=== PATIENT | female | born 1995 | race Caucasian/White ===

== ENCOUNTER 2018-09-17 08:12 | Emergency (ER) | payer OTHER ==
--- NOTE | 2018-09-17 08:40 | EDM.PDOC ---
ED HPI GENERAL MEDICAL PROBLEM - General Chief Complaint: Abdominal Pain Stated Complaint: LEFT SIDE PAIN Time Seen by Provider: 09/17/18 08:15 Source of Information: Reports: Patient History Limitations: Reports: No Limitations - History of Present Illness INITIAL COMMENTS - FREE TEXT/NARRATIVE: 23 y.o.w.f came to the ED because of left flank and left lower abd. pain off/on for 3 days. No Trauma. Denies . No Dysuria, no N/V/D, last BM yesterday, soft, stool, no blood in stool seen. no CP or any other acute med issues. BP 127/63 RR 18 Pulse 83 Temp 36.8 Onset Date: 09/15/18 Onset Time: 09:00 Duration: Day(s):, Getting Worse, Intermittent Location: Reports: Abdomen (left flank) Quality: Reports: Burning, Dull Severity: Moderate Improves with: Reports: None Worsens with: Reports: None Context: Reports: Other Associated Symptoms: Reports: No Other Symptoms LLQ ABDO PAIN Pain Score (Numeric/FACES): 7 - Related Data Allergies Allergy/AdvReac Type Severity Reaction Status Date / Time No Known Allergies Allergy Verified 09/17/18 08:23 Home Meds: Home Meds Ciprofloxacin HCl [Cipro] 500 mg PO BID #20 tablet 09/17/18 [Rx] Phenazopyridine [Pyridium] 100 mg PO TID #9 tablet 09/17/18 [Rx] Social & Family History - Tobacco Use Smoking Status *Q: Never Smoker - Caffeine Use Caffeine Use: Reports: Energy Drinks, Soda, Tea - Recreational Drug Use Recreational Drug Use: No ED ROS GENERAL - Review of Systems Review Of Systems: See Below Constitutional: Reports: No Symptoms HEENT: Reports: No Symptoms Respiratory: Reports: No Symptoms Cardiovascular: Reports: No Symptoms Endocrine: Reports: No Symptoms GI/Abdominal: Reports: Abdominal Pain (left flank) : Reports: No Symptoms Musculoskeletal: Reports: No Symptoms Skin: Reports: No Symptoms Neurological: Reports: No Symptoms Psychiatric: Reports: No Symptoms Hematologic/Lymphatic: Reports: No Symptoms Immunologic: Reports: No Symptoms ED EXAM, GI/ABD - Physical Exam Exam: See Below Exam Limited By: No Limitations General Appearance: Alert, WD/WN, Mild Distress, Obese Eyes: Bilateral: Normal Appearance Ears: Normal External Exam, Normal Canal Nose: Normal Inspection Throat/Mouth: Normal Inspection, Normal Lips, Normal Voice, No Airway Compromise Head: Atraumatic, Normocephalic Neck: Normal Inspection, Supple, Non-Tender Respiratory/Chest: No Respiratory Distress, Lungs Clear, Normal Breath Sounds, Chest Non-Tender Cardiovascular: Normal Peripheral Pulses, Regular Rate, Rhythm, No Edema GI/Abdominal Exam: Normal Bowel Sounds, No Organomegaly, No Distention, No Abnormal Bruit, Pelvis Stable, Tender (left flank) (Female) Exam: Deferred Rectal (Female) Exam: Deferred Back Exam: Normal Inspection, Full Range of Motion, CVA Tenderness (L) Extremities: Normal Inspection, Normal Range of Motion, Non-Tender, No Pedal Edema, Normal Capillary Refill Neurological: Alert, Oriented, CN II-XII Intact, Normal Cognition, Normal Gait Psychiatric: Normal Affect, Normal Mood Skin Exam: Warm, Dry, Intact, Normal Color, No Rash Lymphatic: No Adenopathy Course - Vital Signs Text/Narrative:: 23 y.o.w.f came to the ED because of left flank and left lower abd. pain off/on for 3 days. No Trauma. Denies . No Dysuria, no N/V/D, last BM yesterday, soft, stool, no blood in stool seen. no CP or any other acute med issues. BP 127/63 RR 18 Pulse 83 Temp 36.8 PE: WNWD W F with left flank pain Imaging: CT Abd/pelvis: NAD Labs: CBC, BMP nl UA pos for UTI without hematuria Impression: UTI, Hepatic cyst Tx: Toradol, Pyridium and Cipro Reexam: Improved Plan: D/C with instructions Last Recorded V/S: Last Vital Signs Temp 36.9 C 09/17/18 08:15 Pulse 86 09/17/18 08:15 Resp 18 09/17/18 08:15 BP 127/63 09/17/18 08:15 Pulse Ox 99 09/17/18 08:15 - Orders/Labs/Meds Orders: Active Orders 24 hr Category Date Time Status Abdomen Pelvis wo Cont [CT] Stat Exams 09/17/18 09:24 Taken CULTURE URINE [RM] Stat Lab 09/17/18 08:44 Received Labs: Laboratory Tests 09/17/18 09/17/18 09/17/18 Range/Units 08:44 08:44 08:45 WBC 9.9 (4.5-12.0) X10-3/uL RBC 5.39 H (3.23-5.20) x10(6)uL Hgb 13.1 (11.5-15.5) g/dL Hct 39.9 (30.0-51.3) % MCV 74.1 L (80-96) fL MCH 24.2 L (27.7-33.6) pg MCHC 32.7 (32.2-35.4) g/dL RDW 14.9 (11.5-15.5) % Plt Count 269 (125-369) X10(3)uL MPV 8.9 (7.4-10.4) fL Neut % (Auto) 63.7 (46-82) % Lymph % (Auto) 27.3 (13-37) % Teller % (Auto) 5.7 (4-12) % Eos % (Auto) 3 (1.0-5.0) % Baso % (Auto) 1 (0-2) % Neut # (Auto) 6.2 (1.6-8.3) # Lymph # (Auto) 2.7 (0.6-5.0) # Teller # (Auto) 0.6 (0.0-1.3) # Eos # (Auto) 0.3 (0.0-0.8) # Baso # (Auto) 0.1 (0.0-0.2) # Sodium (135-145) mmol/L Potassium (3.5-5.3) mmol/L Chloride (100-110) mmol/L Carbon Dioxide (21-32) mmol/L BUN (7-18) mg/dL Creatinine (0.55-1.02) mg/dL Est Cr Clr Drug Dosing mL/min Estimated GFR (MDRD) (>60) BUN/Creatinine Ratio (9-20) Glucose (80-116) mg/dL Calcium (8.6-10.2) mg/dL Amylase (25-115) U/L Urine Color Yellow (YELLOW) Urine Appearance Slightly cloudy (CLEAR) Urine pH 5.0 (5.0-6.5) Ur Specific Dorado 1.025 (1.010-1.025) Urine Protein Negative (NEGATIVE) mg/dL Urine Glucose (UA) Normal (NORMAL) mg/dL Urine Ketones Negative (NEGATIVE) mg/dL Urine Occult Blood Negative (NEGATIVE) Urine Nitrite Negative (NEGATIVE) Urine Bilirubin Negative (NEGATIVE) Urine Urobilinogen Normal (NEGATIVE) mg/dL Ur Leukocyte Esterase Moderate H (NEGATIVE) Urine WBC 20-30 H (0-5) Ur Squamous Epith Cells Few H (NS,R,O) Urine Bacteria Moderate H (NS) Urine HCG, Qual Negative (NEGATIVE) 09/17/18 Range/Units 08:45 WBC (4.5-12.0) X10-3/uL RBC (3.23-5.20) x10(6)uL Hgb (11.5-15.5) g/dL Hct (30.0-51.3) % MCV (80-96) fL MCH (27.7-33.6) pg MCHC (32.2-35.4) g/dL RDW (11.5-15.5) % Plt Count (125-369) X10(3)uL MPV (7.4-10.4) fL Neut % (Auto) (46-82) % Lymph % (Auto) (13-37) % Teller % (Auto) (4-12) % Eos % (Auto) (1.0-5.0) % Baso % (Auto) (0-2) % Neut # (Auto) (1.6-8.3) # Lymph # (Auto) (0.6-5.0) # Teller # (Auto) (0.0-1.3) # Eos # (Auto) (0.0-0.8) # Baso # (Auto) (0.0-0.2) # Sodium 142 (135-145) mmol/L Potassium 3.7 (3.5-5.3) mmol/L Chloride 106 (100-110) mmol/L Carbon Dioxide 25 (21-32) mmol/L BUN 12 (7-18) mg/dL Creatinine 0.8 (0.55-1.02) mg/dL Est Cr Clr Drug Dosing 140.49 mL/min Estimated GFR (MDRD) > 60 (>60) BUN/Creatinine Ratio 15.0 (9-20) Glucose 98 (80-116) mg/dL Calcium 8.9 (8.6-10.2) mg/dL Amylase 29 (25-115) U/L Urine Color (YELLOW) Urine Appearance (CLEAR) Urine pH (5.0-6.5) Ur Specific Dorado (1.010-1.025) Urine Protein (NEGATIVE) mg/dL Urine Glucose (UA) (NORMAL) mg/dL Urine Ketones (NEGATIVE) mg/dL Urine Occult Blood (NEGATIVE) Urine Nitrite (NEGATIVE) Urine Bilirubin (NEGATIVE) Urine Urobilinogen (NEGATIVE) mg/dL Ur Leukocyte Esterase (NEGATIVE) Urine WBC (0-5) Ur Squamous Epith Cells (NS,R,O) Urine Bacteria (NS) Urine HCG, Qual (NEGATIVE) Meds: Medications Discontinued Medications Generic Name Dose Route Start Last Admin Trade Name Freq PRN Reason Stop Dose Admin Ciprofloxacin 500 mg 09/17/18 09:27 09/17/18 09:50 Ciprofloxacin Hcl PO 09/17/18 09:28 500 mg ONETIME ONE Administration Ketorolac Tromethamine 60 mg 09/17/18 09:27 09/17/18 09:50 Toradol IM 09/17/18 09:28 60 mg ONETIME ONE Administration Phenazopyridine HCl 95 mg 09/17/18 09:42 09/17/18 09:50 Urinary Pain Relief PO 09/17/18 09:43 95 mg ONETIME STA Administration Departure - Departure Time of Disposition: 09:57 Disposition: Home, Self-Care 01 Condition: Good Clinical Impression: UTI (urinary tract infection) Qualifiers: Urinary tract infection type: acute cystitis Hematuria presence: without hematuria Qualified Code(s): N30.00 - Acute cystitis without hematuria - Discharge Information Prescriptions: Ciprofloxacin HCl [Cipro] 500 mg PO BID #20 tablet Phenazopyridine [Pyridium] 100 mg PO TID #9 tablet Instructions: Urinary Tract Infection, Adult, [id number] Referrals: PCP,None [Primary Care Provider] - Forms: ED Department Discharge, ED Return to Work/School Form Additional Instructions: Please increase water intake, please take cipro and Pyridium as recommended, please f/u, come back if your symptoms get worse acutely - My Orders Last 24 Hours: My Active Orders 09/17/18 08:44 CULTURE URINE [RM] Stat 09/17/18 09:24 Abdomen Pelvis wo Cont [CT] Stat - Assessment/Plan Last 24 Hours: My Active Orders 09/17/18 08:44 CULTURE URINE [RM] Stat 09/17/18 09:24 Abdomen Pelvis wo Cont [CT] Stat
[2018-09-17] MEDS ORDERED: Ciprofloxacin 500 MG Tab PO ONE (09:27)
[2018-09-17] MEDS ORDERED: Ketorolac 60 MG/2 ML SDV IM ONE (09:27)
[2018-09-17] MEDS ORDERED: Phenazopyridine 95 MG Tab PO STA (09:42)
== END 2018-09-17 10:50 | disposition home or self-care (01) ==
LOC: FB.ED 08:12
DX: N30.00 Acute cystitis without hematuria (principal); K76.89 Other specified diseases of liver
CPT/HCPCS: 36415; 74176; 80048; 81001; 81025; 82150; 85025; 87086; 96372; 99284; A9270; J1885